=== PATIENT | male | born 1990 | race Caucasian/White ===

== ENCOUNTER 2022-04-16 01:23 | Day surgery (SDC) | payer OTHER, SELFPAY ==
[2022-04-09 12:01] VITALS: BMI 36.4
--- NOTE | 2022-04-16 07:51 | WPDANESEPPF ---
Anes - Initial Pre Proc Eval Procedure: Operation Date: 04/16/22 10:00 Proposed Procedures p Esophagogastroduodenoscopy - Dago Moreno MD Date/Time: 04/16/22 07:51 Surgeon: Dago Moreno MD Pre Op Diagnosis: GERD Patient Data Age: 31 Gender: M Height: 1.8 m Weight: 118.5 kg Allergies Allergy/AdvReac Type Severity Reaction Status Date / Time No Known Allergies Allergy Verified 04/17/22 08:57 Home Medications Medication Instructions Recorded Confirmed Type losartan 50 mg tablet 50 mg PO DAILY 12/11/21 04/20/22 History esomeprazole magnesium 40 mg 40 mg PO BID #60 caps 12/24/21 04/20/22 Rx capsule,delayed release (Nexium) metoclopramide HCl 10 mg tablet See Rx Instructions .Route 03/04/22 04/20/22 Rx .COMPLEX #30 tabs dextroamphetamine-amphetamine ER 30 mg PO DAILY 04/09/22 04/20/22 History 30 mg 24hr capsule,extend release vilazodone 20 mg tablet 20 mg PO DAILY 04/09/22 04/20/22 History Patient hx anesthesia problems: none Family hx anesthesia problems: none Results Review: All pre-operative results and documents have been reviewed as part of the pre-operative evaluation. [facility] Past Medical History Medical History ADHD Depression GERD (gastroesophageal reflux disease) Hypertension Inflammatory arthritis Obesity Surgical History Surgical History History of tonsillectomy Family History Family History Other Alcoholism Depression Heart disease Social History Social History Smoking packs per day: 0.5 Smoking cigarettes per day: 10.0 Years smoked: 8 Smoking pack-years: 4.00 Smoking status: Former smoker Tobacco type: cigarettes Alcohol use details: social Substance use: never Substance use type: does not use Living arrangements: with family 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 Informed Consent: The patient's anesthetic plan and its attendant risks and benefits were discussed with the patient/family/POA. Questions were solicited and answers provided to the satisfaction of the patient/family/POA.
[2022-04-16 08:59] VITALS: BP 134/90; PULSE 74; RESP 16; TEMP 36.3; O2SAT 97
--- NOTE | 2022-04-16 09:02 | WPDHPUPDATE1 ---
History and Physical Update Update Date/Time: 04/16/22 09:02 History and Physical has been reviewed, including an updated exam of the patient. There are NO changes in the patient's condition. Risks, benefits, and alternatives have been discussed and questions answered. Patient agrees to proceed with procedure.
[2022-04-16] MEDS: LACTATED RINGERS 1,000 ML 150 ML IV CONT (09:09)
[2022-04-16 09:47] VITALS: BP 129/94; PULSE 79; RESP 23; TEMP 36.3; O2SAT 100
[2022-04-16 09:57] VITALS: BP 147/98; PULSE 77; RESP 23; TEMP 36.3; O2SAT 100
[2022-04-16 10:07] VITALS: BP 134/90; PULSE 66; RESP 23; TEMP 36.3; O2SAT 100
== END 2022-04-16 10:10 | disposition home or self-care (01) ==
PROVIDERS: PCP Internal Medicine; Visit Provider Internal Medicine Gastroenterology
PROC: 0DJ08ZZ Inspection of Upper Intestinal Tract, Via Natural or Artificial Opening Endoscopic (ICD-10-PCS; CPT 43235; principal; 2022-04-16 10:00)
DX: K21.00 Gastro-esophageal reflux disease with esophagitis, without bleeding (principal); F90.9 Attention-deficit hyperactivity disorder, unspecified type; I10 Essential (primary) hypertension; K21.9 Gastro-esophageal reflux disease without esophagitis; F32.A Depression, unspecified; E66.9 Obesity, unspecified; Z68.36 Body mass index [BMI] 36.0-36.9, adult; Z87.891 Personal history of nicotine dependence
CPT/HCPCS: 43239; 88305; 88342; J2704; J7120

== ENCOUNTER → 2022-04-27 10:06 | Outpatient (CLI) | payer OTHER, SELFPAY ==
--- NOTE | ~2022-04-27 | US_ITS ---
US abdomen limited DATE: 04/27/2022 10:26 INDICATION: Gastroesophageal reflux TECHNIQUE: Real-time imaging of liver, pancreas, gallbladder COMPARISON: None FINDINGS: No hepatic or pancreatic space-occupying mass lesion is evident. There is hepatic steatosis . Normal hepatopedal portal venous flow direction. No evidence of gallstones or gallbladder wall thickening. Negative sonographic Kennedy's sign. The common bile duct measures 3 mm, normal. IMPRESSION: Hepatic steatosis; otherwise unremarkable examination Reviewed, dictated and finalized at [facility]. Reviewed, dictated and finalized at location [facility]. 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
== END ==
PROVIDERS: PCP Internal Medicine; Visit Provider Surgery
DX: K21.9 Gastro-esophageal reflux disease without esophagitis (principal); K76.0 Fatty (change of) liver, not elsewhere classified
CPT/HCPCS: 76705

== ENCOUNTER 2022-07-14 00:14 | Day surgery (SDC) | payer OTHER, SELFPAY ==
[2022-07-13 08:44] VITALS: BMI 32.9
--- NOTE | 2022-07-13 08:50 | PC.NURSE ---
Report to the Outpatient Waiting Room, entrance under the green pavilion located off [facility], at time 0600 on date 07/14/22. Planned Procedure Time: 0730. Time changes happen often and if your time is changed the preop area will call you the afternoon before. - You and your visitor will be asked to self-screen and do not enter if you have any COVID symptoms. - A mask is optional within the hospital at this time. Patients may have clear liquids (water, carbonated beverages, clear teas, apple juice) until 3 hours prior to surgery with a maximum of 20 ounces. - No food from midnight until time of surgery Take the following medications with a SIP of water the morning of surgery: VIIBRYD REGLAN DO NOT STOP ANY OF YOUR OTHER PRESCRIPTION MEDICATIONS PRIOR TO SURGERY EXCEPT THE FOLLOWING Medications to discontinue per physician: N/A Date to take last dose: N/A Please no make-up, nail south african, hairspray, perfume, deodorant, or body powder the day of surgery. No jewelry (including any body piercings) or valuables the day of surgery, leave them at home. Please take a shower or bath the night before, or the morning of, surgery with an antibacterial soap (HIBICLENS). Wear comfortable, loose fitting clothing. - Jewelry must be removed prior to entering the operating room. Rings and piercings that are not removed may be cut off. - The hospital will not accept responsibility for valuables. - Please leave all valuables, including medications, at home the day of surgery. If you are going home after surgery, a licensed cryogenic transport driver must drive you home. - NO public transportation without another adult if you receive anesthesia. - We recommend that an adult stay with you for 24 hours following discharge. - We also recommend that you do not drive, make important decision, drink alcoholic beverages, or take any drugs that were not prescribed by your health care provider for at least 24 hours after your discharge time. Follow any additional instructions given to you from your surgeon. If you or anyone in your household have experienced Covid symptoms in the past week, please notify your surgeon or the nurse liaison at the phone number below for possible testing. Telephone instructions given to PT - TERRENCE PAYNE and asked if any additional questions and then verbalized understanding. Patient advised to call surgeon office or pre surgery nurse liaison [phone] if any additional questions.
[2022-07-14] VITALS (14 sets, daily range): BP systolic 130–175; BP diastolic 84–107; PULSE 92–117; RESP 10–20; TEMP 36.4–37; O2SAT 94–98; BMI 36.6
--- NOTE | 2022-07-14 05:48 | ECG_ITS ---
Measurements Intervals Silvis Rate: 91 P: 20 IN: 168 QRS: 9 QRSD: 98 T: -9 QT: 368 QTc: 454 Interpretive Statements SINUS RHYTHM BORDERLINE R WAVE PROGRESSION, ANTERIOR LEADS CONSIDER INFERIOR INFARCT, AGE INDETERMINATE ABNORMAL ECG NO PREVIOUS ECG AVAILABLE FOR COMPARISON Electronically Signed On 07-14-2022 8:38:19 CDT by Teo Mcfarlane D.O.
[2022-07-14] MEDS: LACTATED RINGERS 1,000 ML 30 ML IV CONT ×2 (06:25→10:16)
--- NOTE | 2022-07-14 06:37 | WPDANESEPPF ---
Anes - Initial Pre Proc Eval Procedure: Operation Date: 07/14/22 07:30 Proposed Procedures p Laparoscopic Hiatal Hernia Repair with Fundoplication, Davinci Assisted - Hi Mcmanus DO Date/Time: 07/14/22 06:37 Surgeon: Hi Mcmanus DO Pre Op Diagnosis: Hiatal Hernia, GERD Patient Data Age: 31 Gender: M Height: 1.8 m Weight: 107.05 kg Allergies Allergy/AdvReac Type Severity Reaction Status Date / Time No Known Allergies Allergy Verified 07/14/22 06:31 Home Medications Medication Instructions Recorded Confirmed Type losartan 50 mg tablet 50 mg PO DAILY 12/11/21 07/13/22 History esomeprazole magnesium 40 mg 40 mg PO BID #60 caps 12/24/21 07/13/22 Rx capsule,delayed release (Nexium) dextroamphetamine-amphetamine ER 30 mg PO DAILY 04/09/22 07/13/22 History 30 mg 24hr capsule,extend release vilazodone 20 mg tablet 20 mg PO DAILY 04/09/22 07/13/22 History metoclopramide HCl 10 mg tablet See Rx Instructions .Route 06/29/22 07/13/22 Rx .COMPLEX #30 tabs Patient hx anesthesia problems: none Family hx anesthesia problems: none Results Review: All pre-operative results and documents have been reviewed as part of the pre-operative evaluation. [facility] Past Medical History Medical History (Updated 07/14/22 @ 06:37 by Sebastian Crowell MD) ADHD Depression GERD (gastroesophageal reflux disease) Hypertension Inflammatory arthritis Normal esophagogastroduodenoscopy (EGD) Obesity Surgical History Surgical History History of tonsillectomy Family History Family History Other Alcoholism Depression Heart disease Social History Social History Smoking packs per day: 0.5 Smoking cigarettes per day: 10.0 Years smoked: 10 Smoking pack-years: 5.00 Smoking status: Former smoker Tobacco type: cigarettes Smoking end date: 02/23/20 Alcohol intake: never Alcohol use details: social Substance use: never Substance use type: does not use Living arrangements: with family 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 Informed Consent: The patient's anesthetic plan and its attendant risks and benefits were discussed with the patient/family/POA. Questions were solicited and answers provided to the satisfaction of the patient/family/POA.
--- NOTE | 2022-07-14 07:14 | WPDHPUPDATE1 ---
History and Physical Update Update Date/Time: 07/14/22 07:14 History and Physical has been reviewed, including an updated exam of the patient. There are NO changes in the patient's condition. Risks, benefits, and alternatives have been discussed and questions answered. Patient agrees to proceed with procedure.
--- NOTE | 2022-07-14 07:14 | PM.IMHP ---
H&P: HPI History of Present Illness Date/Time: 07/14/22 07:14 Chief Complaint: GERD, Hiatal hernia Narrative: 31 yo man presents for hiatal hernia repair and fundoplication. He reports no change since last seen in office. Review of Systems Review of Systems: All systems reviewed & are unremarkable except as noted in HPI and below Constitutional: Constitutional: Denies chills, Denies fever(s), Denies headache(s) and Denies weight loss Eyes: Eyes: Denies change in vision ENT: Denies dizziness, Denies headache(s), Denies neck mass and Denies throat swelling Cardiovascular: Cardiovascular: Denies chest pain, Denies lightheadedness and Denies dyspnea Respiratory: Respiratory: Denies cough, Denies dyspnea and Denies wheezing Gastrointestinal: Gastrointestinal: Denies abdominal pain, Denies change in bowel habits, Denies nausea and Denies vomiting Genitourinary: Genitourinary: Denies hematuria and Denies dysuria Musculoskeletal: Musculoskeletal: Reports as per HPI Integumentary/Breasts: Skin/Breast: Reports as per HPI Neurologic: Denies dizziness and Denies headache(s) Allergic/Immunologic: Allergic/Immunologic: Denies throat swelling and Denies wheezing [facility] Past Medical History Medical History (Updated 07/14/22 @ 06:37 by Sebastian Crowell MD) ADHD Depression GERD (gastroesophageal reflux disease) Hypertension Inflammatory arthritis Normal esophagogastroduodenoscopy (EGD) Obesity Surgical History Surgical History History of tonsillectomy Family History Family History Other Alcoholism Depression Heart disease Social History Social History Smoking packs per day: 0.5 Smoking cigarettes per day: 10.0 Years smoked: 10 Smoking pack-years: 5.00 Smoking status: Former smoker Tobacco type: cigarettes Smoking end date: 02/23/20 Alcohol intake: never Alcohol use details: social Substance use: never Substance use type: does not use Living arrangements: with family 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 Spiritual care concerns: No Meds Home Medications and Allergies Home Medications Medication Instructions Recorded Confirmed Type losartan 50 mg tablet 50 mg PO DAILY 12/11/21 07/13/22 History esomeprazole magnesium 40 mg 40 mg PO BID #60 caps 12/24/21 07/13/22 Rx capsule,delayed release (Nexium) dextroamphetamine-amphetamine ER 30 mg PO DAILY 04/09/22 07/13/22 History 30 mg 24hr capsule,extend release vilazodone 20 mg tablet 20 mg PO DAILY 04/09/22 07/13/22 History metoclopramide HCl 10 mg tablet See Rx Instructions .Route 06/29/22 07/13/22 Rx .COMPLEX #30 tabs Allergies Allergy/AdvReac Type Severity Reaction Status Date / Time No Known Allergies Allergy Verified 07/14/22 06:31 Exam Const: General: no acute distress and alert Orientation/consciousness: patient oriented x3 HENMT: Head: normocephalic and atraumatic Ears: hearing grossly normal bilaterally Face/Nose/Sinus: Normal nares present Mouth: Yes Normal oral and palatal mucosa present Eyes: Periorbital: periorbital findings normal Sclera: sclerae normal EOM: EOMs intact bilaterally Neck: Neck: normal visual inspection, no lymphadenopathy and trachea midline Chest: Chest palpation & inspection: normal inspection of the chest Resp: Effort & Inspection: normal respiratory effort Auscultation: clear to auscultation bilaterally Cardio: Jugular venous distension: no JVD Rate: regular rate Rhythm: regular rhythm Heart sounds: S1 normal heart sound present and S2 normal heart sound present Peripheral pulses: Peripheral pulses 2+ throughout GI: Inspection: normal to inspection GI Palp: Yes Soft to palpation, No Tenderness to palpation present (GI), No Guarding due to palpation present (GI) and No
[2022-07-14] MEDS: ceFAZolin 2 GM/D5W 50 ML 2 GM/50 ML BAG IVPB ×3 (07:28→22:00)
[2022-07-14] MEDS: BUPIVACAINE/EPINEPHRINE 0.5% 50 ML VIAL 42 ML INFILTRATE (08:22)
--- NOTE | 2022-07-14 10:12 | W.PM.PROC2 ---
Procedure Note - Detailed Date of Procedure 07/14/22 Pre-op Diagnosis Hiatal Hernia, GERD Post-op Diagnosis Same Procedure Performed Robotic assisted laparoscopic hiatal hernia repair with mesh, 270 degree fundoplication Surgeon Hi Mcmanus, DO Anesthesia General and Local (0.5% bupivicaine with epi) Indications This is a 31-year-old man who presented with refractory GERD symptoms. He continued to have a lot of symptoms at night despite dietary modifications and Nexium twice daily. He previously had an EGD which showed evidence of hiatal hernia and esophagitis with possible Silvestre's. He underwent esophageal manometry and pH study. The pH study appeared fairly normal and manometry showed no evidence of achalasia. Discussions were made with the patient about further medical treatment options versus hiatal hernia repair. Patient continued to have frequent symptoms and wanted to proceed with hiatal hernia repair. Decision was made to proceed with robotic assisted laparoscopic hiatal hernia repair with fundoplication. Findings Robotic assisted laparoscopic hiatal hernia repair was performed. The patient had a medium-sized sliding hiatal hernia. The hiatal hernia repair was performed with primary closure with 2-0 V lock permanent suture. A 270 degree partial fundoplication was then performed. No other significant abnormalities were noted. Description of Procedure Procedure as well as risks, benefits, and alternatives were discussed with the patient. Written consent was obtained and placed in chart prior to procedure. Patient was brought back to surgical suite. He was placed supine on operating table. Time-out was done to confirm patient and procedure. He was then intubated by the anesthesia department. His abdomen was prepped and draped in sterile fashion using chlorhexidine prep. 0.5% bupivacaine with epinephrine was infiltrated locally around each area for port placement. An 8 mm incision was made in the left upper quadrant 2 cm inferior to the costal margin in the mid clavicular line. A 5 mm Optiview trocar was then advanced through the abdominal layers under direct visualization. Once inside the abdominal cavity, carbon dioxide insufflation was used to create a pneumoperitoneum. The camera was inserted in the abdomen was inspected. No immediate abnormalities were identified. Another 8 mm camera port was placed about 15 cm inferior to the xiphoid just to the left of midline under direct visualization. An 8 mm port was placed in the anterior axillary line on the left upper quadrant at about the same transverse plane as the camera port. An 8 mm port was placed in the right upper quadrant and another 8 mm AirSeal assist port was placed in right lower quadrant just to the right of the umbilicus. A 5 mm incision was made in the subxiphoid region and the Cynthia liver retractor was inserted through this incision into the abdominal cavity to lift up the left lobe of the liver. This was secured in place to the bed of the table. The patient was then placed in 30? reverse Trendelenburg. The robotic arms were secured to the ports and the robotic camera and instruments were inserted. A force bipolar grasper was placed in the right upper quadrant port. The vessel sealer was placed in the midclavicular left upper quadrant port and a Cadiere grasper was placed in the anterior axillary line left upper quadrant port. I then moved over to the robotic console took control of the camera and instruments. A careful thorough exam was performed throughout the abdomen. The stomach was then reduced from within the hiatal hernia. The gastrohepatic ligament was taken down medially using the vessel sealer to identify the right mu. Peritoneum along the medial side of the right mu was then divided using the vessel sealer. This allowed me to enter into the avascular plane and carefully dissect the hernia sac from within the hiatus. I continued the peritoneal
[2022-07-14] MEDS: fentaNYL CITRATE INJ (*CRX) 100 MCG/2 ML VIAL 25 MCG IV PUSH ×3 (11:03→11:26)
--- NOTE | 2022-07-14 11:44 | SUR.PHASEI ---
1140 unable to document last 25mcg of fentanyl due to pt discharged from pacu. gave 25mcg of fentanyl at 1140
--- NOTE | 2022-07-14 11:49 | ADMGEN ---
This patient, Sebastian Winston, was admitted to Medical Room 253-01. Patient/family oriented to hospital policies and general routines including ID bracelet, bed and alarms, visiting hours, pain management, procedures, bathroom and other care routines, personal items, smoking policy, room service/diet, and visiting hours. Information on how to activate the Rapid Response Team has been discussed. Patient/Family are encouraged to report perceived risks to care and to ask questions if they do not understand what they are told or what they should do.
[2022-07-14] MEDS: ACETAMINOPHEN 500 MG TABLET 1000 MG PO ×3 (12:17→23:33)
[2022-07-14] MEDS: ONDANSETRON INJ 4 MG/2 ML VIAL IV PUSH ×3 (12:17→23:33)
[2022-07-14] MEDS: LACTATED RINGERS 1,000 ML 100 ML IV CONT (12:18)
[2022-07-14] MEDS: MORPHINE SULFATE (*CRX) 2 MG/ML INJ IV PUSH ×2 (12:18→18:30)
[2022-07-14] MEDS: oxyCODONE HCL (*CRX) 5 MG TAB IR PO (13:22)
[2022-07-14] MEDS: MORPHINE SULFATE (*CRX) 4 MG/ML INJ IV PUSH (14:32)
[2022-07-14] MEDS: KETOROLAC 15 MG/ML VIAL (*BKC) IV PUSH ×2 (15:45→22:01)
[2022-07-14] MEDS: PANTOPRAZOLE 40 MG TABLET PO (20:19)
[2022-07-15] MEDS: KETOROLAC 15 MG/ML VIAL (*BKC) IV PUSH (03:29)
[2022-07-15 03:39] VITALS: BP 150/103; PULSE 78; RESP 18; TEMP 36.3; O2SAT 96
[2022-07-15 05:03] VITALS: BP 152/96
[2022-07-15] MEDS: ACETAMINOPHEN 500 MG TABLET 1000 MG PO ×2 (05:05→11:39)
[2022-07-15] MEDS: ONDANSETRON INJ 4 MG/2 ML VIAL IV PUSH ×2 (05:05→11:39)
[2022-07-15 05:51] LABS: Hematocrit 40.1 % (42.0-52.0); Hemoglobin 13.3 g/dL (14.0-18.0); Mean Corpuscular HGB Conc 33.2 g/dl (32-36); Mean Corpuscular Volume 87.6 fl (80-100); Mean Platelet Volume 9.2 fl (7.4-10.4); Platelet Count Result 277 k/mm3 (150-375); Red Blood Count 4.58 M/mm3 (4.6-6.20); Red Cell Distribution Width 12.6 % (11.5-14.5); White Blood Count 12.3 K/mm3 (4.5-10.0)
[2022-07-15 06:02] LABS: Anion Gap 6 mmol/L (8-16); Blood Urea Nitrogen 11 mg/dL (9-20); Calcium 8.6 mg/dL (8.4-10.2); Carbon Dioxide 30 mmol/L (22-30); Chloride 100 mmol/L (98-107); Estimated CRCL calculation 156 ml/min; Estimated Glomerular Filt Rate > 60; Glucose 96 mg/dL (65-110); Potassium 4.2 mmol/L (3.4-5.0); Sodium 136 mmol/L (137-145)
[2022-07-15] MEDS: ceFAZolin 2 GM/D5W 50 ML 2 GM/50 ML BAG IVPB (06:03)
[2022-07-15] MEDS: LOSARTAN POTASSIUM 50 MG TABLET PO (08:19)
[2022-07-15] MEDS: ENOXAPARIN 40 MG/0.4 ML SYRINGE SUB-Q (08:19)
[2022-07-15] MEDS: oxyCODONE HCL (*CRX) 2.5 MG TAB IR PO (08:19)
[2022-07-15] MEDS: PANTOPRAZOLE 40 MG TABLET PO (08:19)
[2022-07-15 10:20] VITALS: BP 162/98; PULSE 87; RESP 18; TEMP 37; O2SAT 99
--- NOTE | 2022-07-15 16:00 | PM.DS ---
DS: Admitting Diagnosis Discharge Date 07/15/22 Admitting Diagnosis Hiatal hernia, GERD DS: Discharge Diagnosis Discharge Diagnosis (1) Hiatal hernia: Code(s): K44.9 - Diaphragmatic hernia without obstruction or gangrene Status: Acute (2) GERD (gastroesophageal reflux disease): Qualifiers: Esophagitis presence: with esophagitis Esophagitis bleeding: without hemorrhage Qualified Code(s): K21.00 - Gastro-esophageal reflux disease with esophagitis, without bleeding Code(s): K21.9 - Gastro-esophageal reflux disease without esophagitis Status: Acute DS: Summary Hospital Course Reason for hospitalization: Hiatal hernia Hospital Course: This is a 31-year-old man who presented for hiatal hernia repair on 07/14/2022. He had been experiencing refractory acid reflux and epigastric abdominal pain despite being on twice daily PPI and other anti reflux measures. He underwent laparoscopic hiatal hernia repair with 270 degree fundoplication, da Brayan assisted on 07/14/2022. Surgery was uncomplicated and he was placed in the surgical floor postoperatively. He was started on a clear liquid diet and pain was controlled with oral and IV pain medications. He was having some gas pains initially but was overall tolerating the clear liquids without any significant dysphagia. He was then advanced to a full liquid diet on postop day 1 and was tolerating this. His pain was better controlled and he was ambulating without much difficulty. He remained hemodynamically stable. He was discharged 07/15/2022. Status at Discharge Functional status at discharge: independent ambulation Overall status at discharge: patient is back to baseline Time Spent with Patient Time attestation: Total time spent providing and/or coordinating discharge services: Time spent: Less than 30 minutes Exam Const: General: no acute distress and alert Orientation/consciousness: patient oriented x3 GI: Inspection: non-distended and incision (Intact with glue) GI Palp: Yes Tenderness to palpation present (GI) (Incisional) DS: Data Data Completed and Pending Labs on day of discharge: Labs from last 24 hours 07/15/22 05:36 WBC 12.3 H RBC 4.58 L Hgb 13.3 L Hct 40.1 L MCV 87.6 MCH 29.0 MCHC 33.2 RDW 12.6 Plt Count 277 MPV 9.2 Sodium 136 L Potassium 4.2 Chloride 100 Carbon Dioxide 30 Anion Gap 6 L BUN 11 Creatinine 0.80 Estim Creat Clear Calc 156 Estimated GFR > 60 Glucose 96 Calcium 8.6 Discharge Plan Discharge Patient Disposition: Home, Self-Care Discharge Instructions: Postop instructions: No lifting >10 lbs for the next 3-4 weeks Continue full liquid diet for the next 2 weeks OK to shower, no soaking under water for 2 weeks Call office for increasing pain, vomiting, or problems with incisions Stand Alone Forms: General Discharge Instructions Follow-up/Referrals: Hi Mcmanus DO [Physician] - Keep Reg. Scheduled Appt. Discharge Medications: New hydrocodone-acetaminophen 5-325 mg tablet 1 tablet PO Q4H PRN (Reason: pain) Qty: 10 0RF Continued losartan 50 mg tablet 50 mg PO DAILY esomeprazole magnesium [Nexium] 40 mg capsule,delayed release(DR/EC) 40 mg PO BID Qty: 60 12RF dextroamphetamine-amphetamine 30 mg capsule,extended release 24hr 30 mg PO DAILY vilazodone 20 mg tablet 20 mg PO DAILY metoclopramide HCl 10 mg tablet See Rx Instructions .ROUTE .COMPLEX Qty: 30 1RF Dose Instruction: TAKE 1 TABLET BY MOUTH DAILY NEEDED FOR NAUSEA OR VOMITING Rx Instructions: TAKE 1 TABLET BY MOUTH DAILY NEEDED FOR NAUSEA OR VOMITING
== END 2022-07-15 13:55 | disposition home or self-care (01) ==
LOC: ANHSURGERY 05:53 → ANH2MED 11:44
PROVIDERS: PCP Internal Medicine; Visit Provider Surgery
PROC: 0DV44ZZ Restriction of Esophagogastric Junction, Percutaneous Endoscopic Approach (ICD-10-PCS; CPT 43280; principal; 2022-07-14 07:30)
DX: K44.9 Diaphragmatic hernia without obstruction or gangrene (principal); K21.9 Gastro-esophageal reflux disease without esophagitis; F90.9 Attention-deficit hyperactivity disorder, unspecified type; I10 Essential (primary) hypertension; F32.A Depression, unspecified; E66.9 Obesity, unspecified; Z68.36 Body mass index [BMI] 36.0-36.9, adult; Z87.891 Personal history of nicotine dependence
CPT/HCPCS: 43280; S2900; 36415; 80048; 85027; 86850; 86900; 86901; 93005; A9270; J0690; J1100; J1170; J1650; J1885; J2250; J2270; J2405; J2704; J3010; J7030; J7120

== ENCOUNTER 2023-01-29 11:53 | Emergency (ER) | payer OTHER, SELFPAY ==
[2023-01-29 12:03] VITALS: BP 147/88; PULSE 82; RESP 16; TEMP 36.9; O2SAT 100
--- NOTE | 2023-01-29 12:18 | ED.URI ---
HPI - URI/Sore Throat General Chief Complaint: Upper Respiratory Infection <Cole Berkowitz APRN - Last Filed: 02/24/23 13:46> Stated Complaint: flu like symptoms <Cole Berkowitz APRN - Last Filed: 02/24/23 13:46> Time Seen by Provider: 01/29/23 12:12 <Cole Berkowitz APRN - Last Filed: 02/24/23 13:46> History of Present Illness HPI Narrative: 32 y/o male presents with cough, congestion, ST, fever, dizziness that started 1 week ago. patient states he just isn't getting better. patient states his pcp called in amoxicillin yesterday but did not see him. patient denies any other symptoms. no other complaints. <Cole Berkowitz APRN - Last Filed: 02/24/23 13:46> Onset (ago): week(s) (1) <Cole Berkowitz APRN - Last Filed: 02/24/23 13:46> Associated symptoms: fever, chills, myalgias, nasal congestion, sore throat and cough <Cole Berkowitz APRN - Last Filed: 02/24/23 13:46> Related Data Home Medications: Home Medications Medication Instructions Recorded Confirmed losartan 50 mg tablet 50 mg PO DAILY 12/11/21 08/23/22 dextroamphetamine-amphetamine ER 30 mg PO DAILY 04/09/22 08/23/22 30 mg 24hr capsule,extend release vilazodone 20 mg tablet 20 mg PO DAILY 04/09/22 08/23/22 <Cole Berkowitz APRN - Last Filed: 02/24/23 13:46> Allergies/Adverse Reactions: Allergies Allergy/AdvReac Type Severity Reaction Status Date / Time No Known Allergies Allergy Verified 01/29/23 12:07 <Cole Berkowitz APRN - Last Filed: 02/24/23 13:46> Review of Systems Review of Systems: All systems reviewed & are unremarkable except as noted in HPI and below <Cole Berkowitz APRN - Last Filed: 02/24/23 13:46> Constitutional: Constitutional: Reports chills, Reports fatigue, Reports fever(s) and Reports weakness <Cole Berkowitz APRN - Last Filed: 02/24/23 13:46> ENT: Reports sore throat <Cole Berkowitz CLINICIAN ONCOLOGY - Last Filed: 02/24/23 13:46> Respiratory: Respiratory: Reports cough <Cole Berkowitz CLINICIAN ONCOLOGY - Last Filed: 02/24/23 13:46> Musculoskeletal: Musculoskeletal: Reports myalgias <Cole Nalila CLINICIAN ONCOLOGY - Last Filed: 02/24/23 13:46> [facility] Past Medical History Medical History: Medical History ADHD Depression GERD (gastroesophageal reflux disease) Hypertension Inflammatory arthritis Normal esophagogastroduodenoscopy (EGD) Obesity <Cole Nalila CLINICIAN ONCOLOGY - Last Filed: 02/24/23 13:46> Surgical History Surgical History: Surgical History History of repair of hiatal hernia Robotic assisted laparoscopic hiatal hernia repair with mesh, 270 degree fundoplication 07/14/22 History of tonsillectomy <Cole Berkowitz CLINICIAN ONCOLOGY - Last Filed: 02/24/23 13:46> Family History Family History: Family History Other Alcoholism Depression Heart disease <Cole Nalila CLINICIAN ONCOLOGY - Last Filed: 02/24/23 13:46> Social History Social History: Social History Smoking packs per day: 0.5 Smoking cigarettes per day: 10.0 Years smoked: 10 Smoking pack-years: 5.00 Smoking status: Former smoker Tobacco type: cigarettes Smoking end date: 02/23/20 Alcohol intake: current Drinks per week: 3 Alcohol use details: social Substance use: never Substance use type: does not use Lack of Transportation: No Lack of Food: Never True Current Housing: I Have Housing Concerned About Future Housing: No Difficulty Paying Gas/Electric Bills: No Difficulty Paying for Meds: No Currently Unemployed: No Education: Associate Degree Difficulty w/ Childcare or Family Care: No Living arrangements: with family 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
[2023-01-29 12:54] LABS: Influenza A QL RT-PCR Negative (Negative); Influenza B QL RT-PCR Negative (Negative); SARS-CoV-2 RNA PCR Negative (Negative)
[2023-01-29] MEDS: IBUPROFEN 600 MG TABLET PO (13:36)
== END 2023-01-29 13:46 | disposition home or self-care (01) ==
PROVIDERS: Emergency Medicine; Emergency Provider Nurse Practitioner Family; PCP Internal Medicine
DX: J06.9 Acute upper respiratory infection, unspecified (principal); Z20.822 Contact with and (suspected) exposure to COVID-19; I10 Essential (primary) hypertension; K21.9 Gastro-esophageal reflux disease without esophagitis; M19.90 Unspecified osteoarthritis, unspecified site; E66.9 Obesity, unspecified; Z68.34 Body mass index [BMI] 34.0-34.9, adult; F32.A Depression, unspecified; F90.9 Attention-deficit hyperactivity disorder, unspecified type; Z87.891 Personal history of nicotine dependence
CPT/HCPCS: 87636; 99283; A9270